=== PATIENT | female | born 1930 | race African-American/Black ===

== ENCOUNTER → 2017-04-17 | Outpatient (CLI) | payer OTHER ==
[~2017-04-17] MED LIST: AGGRENOX PO; AGGRENOX1 CAP PO; ALBUTEROL17 GM; ALBUTEROL17 GM IH; ALDACTONE PO; ASPIRIN; ASPIRIN81 MG PO; COLACE PO; COZAAR100 MG PO; CRESTOR; DIOVAN HCT 160/1 TAB; DIOVAN HCT 3201 EACH PO; FLONASE 0.05% N16 GM; HYDRALAZINE HCL50 MG PO; HYDROCHLOROTH12.5 MG PO; IMDUR-ER30 M1 PO; ISORDIL; LIPITOR PO; LIPITOR40 MG PO; NEXIUM; NEXIUM PO; NITROGLYCERIN; PREDNISONE PO; PROAIR HFA8.5 GM PO; PROTONIX PO; SULAR; SULAR PO; SULAR20 MG PO; TOPROL XL; TOPROL XL PO; TOPROL XL50 MG PO; TYLENOL325 M1 PO; WELCHOL625 MG PO; ZYLOPRIM PO
--- NOTE | ~2017-04-17 | MR165 ---
[facility] A Service of [facility] & [facility] RADIOLOGY TEXT RESULTS PATIENT: ELIZABETH HERNANDEZ LOCATION: [facility] : [birth year] UNIT #: [id number] AGE: [address]: DINESH DEAN SEX: F ORDER DR: [id number] [facility] [address] [place], [place] [address] [id number] O MR#: [id number] Acc #: [id number] NAME: ELIZABETH HERNANDEZ : 1930 SEX: F STUDY DATE/TIME: 04/17/2017 16:06 UNIT: [facility] ROOM: STUDY DESCRIPTION: MR Shoulder Wo Contrast Rt Attending Physician: Dinesh Dean Referring Physician: Dinesh Dean Ordering Physician: Staff Doctor Not On Primary Care Physician: Ana Cabello M.D. MRI CENTER REPORT This report is preliminary unless electronic signature is present. EXAM Right shoulder MRI without contrast, 04/17/2017. HISTORY 86-year-old female with right shoulder pain and limited range of motion for 1 year. No specific injury. No prior right shoulder surgery. COMPARISON Right shoulder x-rays 09/05/2016, and 11/28/2016. TECHNIQUE Routine unenhanced multiplanar, multisequence high-field MR imaging of the right shoulder was performed. FINDINGS There is moderate supraspinatus tendinopathy with evidence of partial-thickness bursal surface fraying involving the anterior insertional tendon as well as a partial thickness undersurface tear involving the central pre-insertional tendon. The anterior bursal surface fraying involves less than 50% of the tendon thickness. The undersurface of pre-insertional partial thickness tear measures approximately 1 x 1 cm in size and involves approximately 50% of the tendon thickness. There is fyff-fq-eqosrduk infraspinatus tendinopathy without tear. Teres minor and subscapularis tendons are intact. There is moderate long biceps tendinopathy. Moderate degenerative changes noted throughout the glenohumeral joint with small marginal osteophytes of the humeral head-neck junction. 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 The glenoid labrum is diffusely degenerated and torn. There is a small glenohumeral effusion with mild synovial proliferation. [facility]. [facility] A Service of [facility] RADIOLOGY TEXT RESULTS PATIENT: ELIZABETH HERNANDEZ LOCATION: [facility] : [birth year] UNIT #: [id number] AGE: [address]: DINESH DEAN SEX: F ORDER DR: Mild degenerative change of the acromioclavicular joint. Mild lateral downsloping of the acromion. There is mild inflammation of the subacromial/subdeltoid bursa. Bone marrow signal is within expected limits. Visualized musculature is unremarkable. No significant muscle atrophy. IMPRESSION 1. Moderate supraspinatus tendinopathy with partial thickness bursal surface fraying of the anterior insertional tendon, involving less than 50% of the tendon thickness. There is also partial thickness undersurface tear involving the central pre-insertional supraspinatus tendon. The tear measures approximately 1 x 1 cm in size and involves at least 50% of the tendon thickness. 2. Dawi-vo-cjsfwhsd infraspinatus tendinopathy without tear. 3. Moderate long biceps tendinopathy. 4. Moderate arthrosis of the glenohumeral joint, detailed above. 5. Small glenohumeral effusion with associated synovial proliferative changes. 6. Mild acromioclavicular joint arthrosis and mild lateral downsloping of the acromion. 7. Mild inflammation of the subacromial/subdeltoid bursa. Dictated by... Jr Vergara M.D. THIS IS AN ELECTRONICALLY VERIFIED REPORT Jr Vergara M.D. at 04/19/2017 4:59 PM TAYE/jose TD: 04/18/2017 22:36 JOB #: [id number] MRI CENTER REPORT Page 1 of 1 COPY
== END | disposition home or self-care (01) ==
LOC: CMRI 15:29
DX: M75.101 Unspecified rotator cuff tear or rupture of right shoulder, not specified as traumatic (principal); M19.011 Primary osteoarthritis, right shoulder; M75.51 Bursitis of right shoulder; M75.81 Other shoulder lesions, right shoulder; M75.21 Bicipital tendinitis, right shoulder
CPT/HCPCS: 73221